=== PATIENT | female | born 1985 | race Caucasian/White ===

== ENCOUNTER 2022-04-20 15:11 | Emergency (ER) | payer OTHER, SELFPAY ==
[2022-04-20 15:14] VITALS: BP 109/67; PULSE 80; RESP 16; TEMP 36.6; O2SAT 98; BMI 38.2
--- NOTE | 2022-04-20 15:39 | PC.NURSE ---
u/s IV attempted. MD notified. to the bedside for u/s guided IV attempt
[2022-04-20 16:00] VITALS: BP 102/58; PULSE 83; RESP 18; O2SAT 97
--- NOTE | 2022-04-20 16:05 | [facility].EDGENADL ---
Discharge Plan Disposition Chief Complaint: Recheck/Abnormal Lab/Rx Clinical Impressions Clinical Impression: Dehydration Instructions Patient Instructions: DI for Dehydration -- Adult Discharge ED Provider: Shahbaz Serrano Adult HPI General Chief complaint: Recheck/Abnormal Lab/Rx Stated complaint: Lightheaded,moments of syncope Time Seen by Provider: 04/20/22 16:05 Mode of Arrival: Ambulatory Source of Information: Patient Limitations: No Limitations Description of Symptoms (Recalled from ER Triage Doc. by RN): to ed per pvt car with states needs iv fluids pt with hx of ileostomy and gets fluids at home thru port. states port is getting replaced tomorrow. History of Present Illness HPI narrative: This is a 37-year-old female presented to the emergency department for IV fluid. The patient has a history of ileostomy and he frequently gets IV fluids at home to report. She had an issue with the port last few weeks and is actually scheduled to get it replaced tomorrow. However she has had a lot going on over the last few days and she was unable to get her fluids. Other than that she is asymptomatic. Denies headache or change in vision. No focal weakness. No abdominal pain or vomiting. No diarrhea. Related Data Allergies Allergy/AdvReac Type Severity Reaction Status Date / Time levofloxacin [From Levaquin] Allergy Verified 04/20/22 15:59 vancomycin Allergy Verified 04/20/22 15:59 [facility] Social History Smoking Status: Never smoker alcohol intake: never current occupational status: employed Travel in the last 8 weeks: None ROS Obtained: Yes All systems reviewed & no additional complaints except as documented Constitutional Constitutional: Denies chills and Denies headache(s) ENT Ears, Nose, Mouth, and Throat: Denies headache(s) Cardiovascular Cardiovascular: Denies chest pain and Denies dyspnea Respiratory Respiratory: Denies dyspnea Gastrointestinal Gastrointestingal: Denies vomiting Musculoskeletal Musculoskeletal: Denies arthralgias Integumentary/Breasts Skin/Breast: Denies rash Neurologic Neurologic: Denies headache(s) Physical Exam General General appearance: alert and in no apparent distress Respiratory Respiratory exam: Present normal lung sounds bilaterally; Absent respiratory distress Cardiovascular Cardiovascular exam: Present regular rate and normal rhythm Abdominal Exam Abdominal exam: Present soft; Absent distention, tenderness or guarding Extremities Exam Extremities exam: Present normal inspection and full ROM; Absent tenderness Neurological Exam Neurological exam: Present alert, oriented X3 and normal gait Skin Skin exam: Absent rash Medical Decision Making Medical Records Medical records reviewed: Yes I reviewed the patient's medical records. [facility] Inquiry Pt receiving controlled substance: No Vital Signs: 04/20/22 15:14 04/20/22 16:00 Temperature 98 F Temperature Source Oral Pulse Rate 83 Pulse Rate [Radial] 80 Respiratory Rate 16 18 Blood Pressure 102/58 L Blood Pressure [Right Radial Artery] 109/67 L Blood Pressure Mean 77 Blood Pressure Mean [Right Radial Artery] 81 Blood Pressure Position [Right Radial Artery] Sitting 02 Sat by Pulse Oximetry 98 97 Oxygen Delivery Method Room Air Orders (Tests/Meds): ED MEDICATIONS Generic Name Dose Route Start Last Admin Trade Name Freq PRN Reason Stop Dose Admin Sodium Chloride 1,000 mls @ 999 mls/hr 04/20/22 16:30 04/20/22 16:37 Sod Chlor 0.9% 1000ml Bag IV 04/20/22 17:30 999 mls/hr .Q1H1M [facility] Administration Discontinued Medications Generic Name Dose Route Start Last Admin Trade Name Freq PRN Reason Stop Dose Admin Sodium Chloride 1,000 mls @ 999 mls/hr 04/20/22 15:45 04/20/22 16:00 Sod Chlor 0.9% 1000ml Bag IV 04/20/22 16:45 999 mls/hr .Q1H1M [facility] Administration Reevaluation(s) Time: 16:48
[2022-04-20 16:30] VITALS: BP 119/65; PULSE 81; RESP 18; O2SAT 99
--- NOTE | 2022-04-20 16:39 | PC.NURSE ---
pt given a warm blanket [place]. no needs voiced at this time
[2022-04-20 17:01] VITALS: BP 110/57; PULSE 76; O2SAT 98
[2022-04-20 17:30] VITALS: BP 117/61; PULSE 78; RESP 18; O2SAT 98
[2022-04-20 18:12] VITALS: BP 117/61; PULSE 78; RESP 18; TEMP 36.6; O2SAT 98
== END 2022-04-20 18:14 | disposition home or self-care (01) ==
PROVIDERS: Emergency Provider Emergency Medicine
DX: E86.0 Dehydration (principal); R55 Syncope and collapse; R79.9 Abnormal finding of blood chemistry, unspecified; Z88.0 Allergy status to penicillin; Z88.1 Allergy status to other antibiotic agents; Z88.3 Allergy status to other anti-infective agents; Z88.8 Allergy status to other drugs, medicaments and biological substances
CPT/HCPCS: 96360; 96361; 99284